=== PATIENT | male | born 1990 | race African-American/Black ===

== ENCOUNTER 2018-11-25 22:16 | Emergency (ER) | payer BC ==
[2018-11-25] MEDS ORDERED: Doxycycline 100 MG Cap PO ONE (22:55)
[2018-11-25] MEDS ORDERED: Cephalexin 500 MG Cap PO ONE (22:56)
--- NOTE | 2018-11-25 23:07 | EDM.PDOC ---
ED HPI GENERAL MEDICAL PROBLEM - General Chief Complaint: ENT Problem Stated Complaint: SWOLLEN BOTTOM LIP Time Seen by Provider: 11/25/18 22:43 Source of Information: Reports: Patient, RN Notes Reviewed - History of Present Illness INITIAL COMMENTS - FREE TEXT/NARRATIVE: 28-year-old male comes in with severe swelling of his lower lip. He states that he squeezed a pimple about 2 days ago and then again yesterday morning. The swelling started yesterday, much worse today and especially this evening. This lower mouth is painful. He states there was drainage of "pus" when he squeezed the pimple type lesion no fever or chills. No other areas of skin rash or other unusual lesions. Lower Lip Pain Score (Numeric/FACES): 9 - Related Data Allergies Allergy/AdvReac Type Severity Reaction Status Date / Time No Known Allergies Allergy Verified 11/25/18 22:33 Home Meds: Home Meds Cephalexin [Keflex] 500 mg PO QID #30 capsule 11/25/18 [Rx] Doxycycline [Vibramycin] 100 mg PO BID #20 tab 11/25/18 [Rx] Past Medical History Musculoskeletal History: Reports: Fracture, Other (See Below) Other Musculoskeletal History: fx R wrist Social & Family History - Tobacco Use Smoking Status *Q: Never Smoker - Caffeine Use Caffeine Use: Reports: None - Recreational Drug Use Recreational Drug Use: No ED ROS ENT - Review of Systems Review Of Systems: See Below Constitutional: Denies: Fever, Chills Respiratory: Denies: Shortness of Breath GI/Abdominal: Denies: Abdominal Pain, Vomiting Musculoskeletal: Reports: No Symptoms Skin: Denies: Rash ED EXAM, ENT - Physical Exam Exam: See Below General Appearance: Alert, Mild Distress Eye Exam: Bilateral Eye: PERRL Mouth/Throat: Other (Lower lip mouth diffusely swollen with a slightly scabbed over lesion just below the center area of the lower lip, no vesiculation ulceration or other lesion visible or palpable). No: Dental Pain, Pharyngeal Erythema Head: No: Facial Swelling (No other areas of facial swelling or tenderness) Neck: Supple Respiratory/Chest: No Respiratory Distress Cardiovascular: Regular Rate, Rhythm Skin: Warm, Dry, Normal Color, No Rash Course - Vital Signs Last Recorded V/S: Last Vital Signs Temp 97.4 F 11/25/18 22:30 Pulse 69 11/25/18 22:30 Resp 20 11/25/18 22:30 BP 135/68 11/25/18 22:30 Pulse Ox 100 11/25/18 22:30 - Orders/Labs/Meds Meds: Medications Discontinued Medications Generic Name Dose Route Start Last Admin Trade Name Dary PRN Reason Stop Dose Admin Cephalexin 500 mg 11/25/18 22:56 11/25/18 23:04 Keflex PO 11/25/18 22:57 500 mg ONETIME ONE Administration Doxycycline Hyclate 200 mg 11/25/18 22:55 11/25/18 23:04 Vibramycin PO 11/25/18 22:56 200 mg ONETIME ONE Administration Departure - Departure Time of Disposition: 23:10 Disposition: Home, Self-Care 01 Condition: Fair Clinical Impression: Cellulitis Qualifiers: Site of cellulitis: face Qualified Code(s): L03.211 - Cellulitis of face - Discharge Information Prescriptions: Cephalexin [Keflex] 500 mg PO QID #30 capsule Doxycycline [Vibramycin] 100 mg PO BID #20 tab Instructions: Cellulitis, Adult, [id number] Referrals: PCP,None [Primary Care Provider] - Forms: ED Department Discharge Additional Instructions: Warm compresses to lower mouth 3-4 times daily while awake, do not squeeze the area of infection that will make your mouth infection worse, doxycycline and cephalexin antibiotics as prescribed. Follow-up for for recheck at her [facility] medical clinic if not much better by Saturday, call [phone] as needed for appointment.
== END 2018-11-25 23:20 | disposition home or self-care (01) ==
LOC: JD.ED 22:16
DX: L03.211 Cellulitis of face (principal)
CPT/HCPCS: 99283; A9270